=== PATIENT | male | born 1970 | race Caucasian/White ===

== ENCOUNTER 2019-07-20 08:32 | Emergency (ER) | payer OTHER ==
--- OUTSIDE RECORDS SUMMARY | 2019-07-20 08:43 | XMS REPORT | Clinical Summary ---
:1970 Author Organization [facility] Address [address] [place] [address] Care Team Providers Name Role Phone David Rubio MD Primary Care Provider Allergies Active Allergy Reactions Severity Noted Date Comments Hydrocodone-Acetaminophen Itching Low 05/13/2017 Owveqqz-Lwt-Ike Reductase Inhibitors 06/11/2016 Tramadol 06/11/2016 Induced seizure Medications Medication Sig Dispensed Refills Start Date End Date Status DECARA 25,000 unit Take 1 3 07/25/2016 Active capsule capsule by mouth once a week. gabapentin Take 300 mg 5 06/27/2016 Active (NEURONTIN) 300 MG by mouth 2 capsule (two) times a day. levETIRAcetam Take 750 mg 3 07/22/2016 Active (KEPPRA) 750 MG by mouth 2 tablet (two) times a day. Take one in the am and two in the pm mometasone USE 2 SPRAYS 2 05/29/2016 Active (NASONEX) 50 INTO EACH mcg/actuation NOSTRIL nasal spray DAILY metFORMIN XR Take 500 mg 2 08/27/2016 Active (GLUCOPHAGE-XR) by mouth 2 500 mg 24 hr (two) times tablet a day. valsartan-hydrochl TAKE ONE 2 08/27/2016 Active orothiazide TABLET DAILY (DIOVAN-HCT) IN THE 320-12.5 mg per MORNING tablet metaxalone Take 800 mg 5 04/10/2017 Active (SKELAXIN) 800 MG by mouth 3 tablet (three) times a day as needed. triamcinolone 0 04/15/2017 Active (KENALOG) 0.1 % cream BETAINE HCL ORAL Take by 0 Active mouth 3 (three) times a day. SYMBICORT 160-4.5 0 06/08/2018 Active mcg/actuation inhaler diclofenac sodium TAKE 1 180 tablet 1 10/08/2018 Active (VOTAREN XR) 100 TABLET BY mg 24 hr tablet MOUTH TWICE A DAY diclofenac sodium TAKE 1 180 tablet 1 02/16/2018 Discontinued (VOTAREN XR) 100 TABLET BY 8 (Reorder) mg 24 hr tablet MOUTH TWICE A DAY DULoxetine Take 1 180 capsule 1 03/11/2018 Discontinued (CYMBALTA) 60 MG capsule (60 9 capsule mg total) by mouth 2 (two) times a day. [id number] Take 1 kit 1 each 0 12/07/2018 [id number] by mouth 9 (MOVIPREP) once for 1 100-7.5-2.691 gram dose. powder in packet pantoprazole Take 1 90 tablet 3 12/27/2018 (PROTONIX) 40 MG tablet (40 9 EC tablet mg total) by mouth daily for 30 days. Active Problems Problem Noted Date Cervicalgia 06/16/2018 Splenomegaly 11/16/2017 Chronic diarrhea 05/13/2017 Myalgia 05/13/2017 Small fiber neuropathy 05/13/2017 Erythromelalgia 11/11/2016 Arthrosis of left acromioclavicular joint 11/11/2016 CVID (common variable immunodeficiency) 06/11/2016 Overview: Dr brown Periarticular pain 06/11/2016 Overview: HLA b-27 neg Sleep apnea 06/11/2016 HLD (hyperlipidemia) 06/11/2016 HTN (hypertension) 06/11/2016 PAC (premature atrial contraction) 06/11/2016 Seizure 06/11/2016 Overview: +EEG. Dr Varghese partial complex Encounters Date Type Specialty Care Team Description 04/14/2019 Refill Rheumatology Sylvia Mckeon MD 12/27/2018 Surgery Gastroenterology Jose Jackson EGD with Cold Bx AND MD Silvio COLONOSCOPY with Cold Bx 12/27/2018 Anesthesia Event Gastroenterology Dhother, Lucio Garza MD 12/27/2018 [facility] Gastroenterology Jose Jackson Hypertension, Encounter MD Silvio unspecified type (Primary Dx) 12/07/2018 Office Visit Gastroenterology Jose Jackson (Primary Dx); MD Silvio Gastroesophageal reflux disease without esophagitis; Constipation, unspecified constipation type; Diarrhea, unspecified type; Weight loss 12/07/2018 Orders Only Gastroenterology Conrado Kendrick RN 10/08/2018 Refill Rheumatology Sylvia Mckeon MD after 07/19/2018 Family History Medical History Relation Name Comments Other Cousin paternal Esophageal cancer Father Psoriasis Mother Relation Name Status Comments Cousin paternal Father Mother Social History Tobacco Use Types Packs/Day Years Used Date Never Smoker Smokeless Tobacco: Former User Chew Alcohol Use Drinks/Week oz/Week Comments No Sex Assigned at Date Recorded Not on file Job Start Date Occupation Industry Not on file Not on file Not on file Travel History Travel Start Travel End No recent travel history available. Last Filed Vital Signs Vital Sign Reading Time Taken Comments Blood Pressure 131/68 12/27/2018 3:00 PM [employer]PECT[employer]RILL[employer] Pulse 85 12/27/2018 3:00 PM [employer] Temperature 36.4 C (97.5 F) 12/27/2018 3:00 PM [employer] Respiratory Rate 20 12/27/2018 3:00 PM [employer] Oxygen Saturation 96% 12/27/2018 3:00 PM [employer]RI[employer] Inhaled Oxygen Concentration - - Weight 103 kg (226 lb 12.8 oz) 12/07/2018 12:30 PM [employer]RI[employer] Height 167.6 cm (5' 6") 12/27/2018 1:12 PM [employer] Body Mass Index 32.54 12/07/2018 12:30 PM [employer] Plan of Treatment Health Maintenance Due Date Last Done Comments COLONOSCOPY SCREENING 2019 SHINGLES VACCINES (#1) 2019 INFLUENZA VACCINE 06/09/2019 12/20/2018 Procedures Procedure Name Priority Date/Time Associated Comments Diagnosis SURGICAL PATHOLOGY REQUEST Routine 12/27/2018 Results for 3:05 PM [employer]PECTING DRILL[employer] HEL[employer] this procedure are in the results section. POC GLUCOSE Routine 12/27/2018 Results for 2:46 PM [employer]PECTING DRILL[employer] HELPER this procedure are in the results section. TIM TEST Routine 12/27/2018 Results for 2:07 PM [employer]PECTING DRILLER HELPER this procedure are in the results section. ESOPHAGOGASTRODUODENOSCOPY (EGD) 12/27/2018 Diarrhea 1:56 PM [employer]PECTING [employer]RILL[employer] HELPER Gastric reflux POC GLUCOSE Routine 12/27/2018 Results for 1:24 PM [employer]PECTING DRILLER HELPER this procedure are in the results section. after 07/19/2018 Results Surgical pathology request (12/27/2018 3:05 PM [employer]OSPECTING DRILLER HELPER) [facility] DEPARTMENT OF PATHOLOGY AND GENOMIC MEDICINE Surgical pathology See link below [facility] DEPARTMENT OF report for PDF Lab PATHOLOGY AND Report GENOMIC MEDICINE Result status This is Final [facility] DEPARTMENT OF Report for PATHOLOGY AND [id number] GENOMIC MEDICINE Specimen Performing Organization Address City/[facility]/Zipcode Phone Number [facility] DEPARTMENT OF PATHOLOGY AND [address] [place] [id number] [facility] MEDICINE POC glucose (12/27/2018 2:46 PM PROSPECTING DRILLER HELPER)Only the most recent of2 resultswithin the time period is included. Pathologist [facility] POC glucose 102 (H) 65 - 99 mg/dL [facility] Comment: [facility] Notified RN Meter ID: [id number] Mortgage Broker: [facility] Specimen Performing Organization Address City/[facility]/Zipcode Phone Number [facility] DEPARTMENT OF PATHOLOGY AND [address] [place] [id number] [place] [id number] TIM test (12/27/2018 2:07 PM PROSPECTING DRILLER HELPER) TIM test Negative after 24 hours. [facility] Comment: HOSPITAL Specimen Information Specimen Source: Biopsy Specimen Site: bx stomach Specimen Biopsy Performing Organization Address City/[facility] Number [facility] DEPARTMENT OF PATHOLOGY AND [address] [place], [place] [id number] [address] [address] after 07/19/2018 (Home) [place] [phone] ED [facility] [place] (Work) [place] [phone]
--- NOTE | 2019-07-20 09:25 | RAD REPORT ---
EXAM DESCRIPTION: CT - Head Brain Wo Cont - 07/20/2019 9:10 am CLINICAL HISTORY: Headache COMPARISON: None. TECHNIQUE: Computed axial tomography of the head was obtained. IV contrast was not requested. All CT scans are performed using dose optimization technique as appropriate and may include automated exposure control or mA/KV adjustment according to patient size. FINDINGS: An intracranial bleed is not seen . The ventricles are normal in caliber. No extra-axial fluid collection is noted. Fluid within the sinuses/ mastoids is not seen. IMPRESSION: No acute intracranial abnormality is seen. If patient's symptoms persist MRI of the bra in would be recommended.
--- NOTE | 2019-07-20 09:36 | ER ---
Nurse's Notes [facility] Name: Corey Bella Age: 49 yrs Sex: Male : 1970 Arrival Date: 07/20/2019 Time: 08:35 Bed 6 Private MD: David Rubio V Diagnosis: Headache Presentation: 07/20 08:46 Presenting complaint: Patient states: this morning had a squeezing pain to top of right iw head this morning, hx of headaches/migraines, was on diclofenac for headaches but was switched to sumatriptan and propranolol. Transition of care: patient was not received from another setting of care. Onset of symptoms was July 20, 2019. Risk Assessment: Do you want to hurt yourself or someone else? Patient reports no desire to harm self or others. Initial Sepsis Screen: Does the patient meet any 2 criteria? No. Patient's initial sepsis screen is negative. Does the patient have a suspected source of infection? No. Patient's initial sepsis screen is negative. Care prior to arrival: None. 08:46 Method Of Arrival: Ambulatory iw 08:46 Acuity: KIMBERLY 3 iw Triage Assessment: 09:49 General: Appears in no apparent distress. Behavior is calm. iw Historical: - Allergies: 09:05 tramadol; iw - Home Meds: 09:05 diclofenac sodium 100 mg oral Tb24 1 tab 2 times per day [Active]; oxcarbazepine 300 mg iw oral tab 1 tab 2 times per day [Active]; sumatriptan succinate 50 mg oral tab 1 tab daily [Active]; propranolol 10 mg Oral tab twice a day [Active]; pantoprazole 40 mg oral TbEC 1 tab once daily [Active]; - PMHx: 09:05 Common Variable Immune Deficiency; Hypertension; Seizures; iw - Immunization history:: Adult Immunizations up to date. - Ebola Screening: : Patient negative for fever greater than or equal to 101.5 degrees Fahrenheit, and additional compatible Ebola Virus Disease symptoms Patient denies exposure to infectious person Patient denies travel to an Ebola-affected area in the 21 days before illness onset No symptoms or risks identified at this time. - Social history:: Smoking status: Patient/guardian denies using tobacco. Screenin:49 Abuse screen: Denies threats or abuse. Denies injuries from another. Nutritional iw screening: No deficits noted. Tuberculosis screening: No symptoms or risk factors identified. Fall Risk None identified. Assessment: 08:50 General: Appears comfortable, Behavior is calm, cooperative, Pt states "This headache aa5 feels exactly the same to my other headaches and absolutely nothing is different about it" . Pain: Complains of pain in right side of top of head Pain does not radiate. Pain currently is 1 out of 10 on a pain scale. Quality of pain is described as aching, Pain began "I always have headache, since I was a teenager" Is continuous. Neuro: Level of Consciousness is awake, alert, obeys commands, Oriented to person, place, time, situation, Agricultural Commodities Grader are equal bilaterally Moves all extremities. Gait is steady, Speech is normal, Facial symmetry appears normal, Pupils are PERRLA. Cardiovascular: Heart tones S1 S2 present Rhythm is regular. Respiratory: Airway is patent Respiratory effort is even, unlabored, Respiratory pattern is regular, symmetrical, Breath sounds are clear bilaterally. Denies cough, shortness of breath. GI: Patient currently denies diarrhea, nausea, vomiting. : No signs and/or symptoms were reported regarding the genitourinary system. EENT: Denies sore throat . Derm: Skin is pink, warm \\T\\ dry. Musculoskeletal: Range of motion: intact in all extremities. 09:48 Reassessment: Patient appears in no apparent distress at this time. Patient and/or iw family updated on plan of care and expected duration. Pain level reassessed. Patient is alert, oriented x 3, equal unlabored respirations, skin warm/dry/pink. Patient states feeling better. Patient states symptoms have improved. Pain: Denies pain. Vital Signs: 09:05 BP 146 / 96; Pulse 93; Resp 18 S; Temp 98.3; Pulse Ox 98% on R/A; iw ED Course: 08:35 Patient arrived in ED. ag5 08:35 David Rubio MD is Private Physician. ag5 08:38 Jorje Bonner PA is [facility]. cp 08:38 Vidal Reid MD is Attending Physician. cp 08:38 Laly Pineda, RN is Primary Nurse. aa5 08:59 Triage completed. iw 09:05 Arm band placed on. iw 09:11 CT Head Brain wo Cont In Process Unspecified. EDMS 09:35 David Rubio MD is Referral Physician. cp 09:35 Referral Physician role handed off by David Rubio MD cp 09:35 Samuel Varghese MD is Referral Physician. cp 09:49 Patient has correct armband on for positive identification. iw 09:49 No provider procedures requiring assistance completed. Patient did not have IV access iw during this emergency room visit. Administered Medications: No medications were administered Outcome: 09:35 Discharge ordered by MD. cp 09:49 Discharged to home ambulatory, with family. iw 09:49 Condition: good 09:49 Discharge instructions given to patient, family, Instructed on discharge instructions, follow up and referral plans. Demonstrated understanding of instructions, follow-up care. 09:49 Patient left the ED. iw Signatures: Dispatcher [employer] EDJazmine Trammell RN RN Laly Evans RN RN aa5 Jorje Bonner PA PA Rhianna Saldivar ag5
--- NOTE | 2019-07-20 09:36 | EDPHYS ---
Physician Documentation [facility] Name: Corey Bella Age: 49 yrs Sex: Male : 1970 Arrival Date: 07/20/2019 Time: 08:35 Bed 6 Private MD: David Rubio V ED Physician Vidal Reid HPI: 07/20 08:52 This 49 yrs old Male presents to ER via Unassigned with complaints of Head cp Problem. 08:52 The patient complains of pain to the top and right side of head. cp 08:52 The patient describes the headache as squeezing. cp 08:52 Onset: The symptoms/episode began/occurred this morning, and improved just prior to cp arrival. Associated signs and symptoms: Pertinent negatives: altered mental status, dizziness, fever, neck stiffness, paresthesias, Photophobia vision changes, vomiting. Severity of symptoms: in the emergency department the pain a " 1" out of "10". Headache History: The patient has had previous headaches and this one is similar to previous episodes. Patient reports recent change in headache medicine from diclofenac to sumatriptan and propanolol that patient reports is not as effective in relieving headaches as diclofenac. Patient reports taking diclofenac this morning for headache. Historical: - Allergies: 09:05 tramadol; iw - Home Meds: 09:05 diclofenac sodium 100 mg oral Tb24 1 tab 2 times per day [Active]; oxcarbazepine 300 mg iw oral tab 1 tab 2 times per day [Active]; sumatriptan succinate 50 mg oral tab 1 tab daily [Active]; propranolol 10 mg Oral tab twice a day [Active]; pantoprazole 40 mg oral TbEC 1 tab once daily [Active]; - PMHx: 09:05 Common Variable Immune Deficiency; Hypertension; Seizures; iw - Immunization history:: Adult Immunizations up to date. - Ebola Screening: : Patient negative for fever greater than or equal to 101.5 degrees Fahrenheit, and additional compatible Ebola Virus Disease symptoms Patient denies exposure to infectious person Patient denies travel to an Ebola-affected area in the 21 days before illness onset No symptoms or risks identified at this time. - Social history:: Smoking status: Patient/guardian denies using tobacco. ROS: 09:00 Constitutional: Negative for body aches, chills, fever, poor PO intake. cp 09:00 Eyes: Negative for injury, pain, redness, and discharge. cp 09:00 ENT: Negative for drainage from ear(s), ear pain, sore throat, difficulty swallowing, difficulty handling secretions. 09:00 Cardiovascular: Negative for chest pain, edema, palpitations. 09:00 Respiratory: Negative for cough, shortness of breath, wheezing. 09:00 Abdomen/GI: Negative for abdominal pain, nausea, vomiting, and diarrhea, constipation, black/tarry stool, rectal bleeding. 09:00 Back: Negative for pain at rest, pain with movement, radiated pain. 09:00 : Negative for urinary symptoms. 09:00 Skin: Negative for cellulitis, rash. 09:00 Neuro: Positive for headache, Negative for altered mental status, dizziness, numbness, weakness. 09:00 All other systems are negative. Exam: 09:05 Constitutional: The patient appears in no acute distress, alert, awake, comfortable, cp non-diaphoretic, non-toxic, well developed, well nourished. 09:05 Head/Face: Normocephalic, atraumatic. cp 09:05 Eyes: Periorbital structures: appear normal, Pupils: equal, round, and reactive to light and accomodation, Extraocular movements: intact throughout, Conjunctiva: normal, no exudate, no injection, Sclera: no appreciated abnormality, Lids and lashes: appear normal, bilaterally. 09:05 ENT: External ear(s): are unremarkable, Ear canal(s): are normal, clear, TM's: bulging, is not appreciated, bilaterally, dullness, is not appreciated, erythema, is not appreciated, bilaterally, Nose: is normal, Mouth: is normal, Posterior pharynx: is normal, airway is patent, no erythema, no exudate. 09:05 Chest/axilla: Inspection: normal, Palpation: is normal, no crepitus, no tenderness. 09:05 Cardiovascular: Rate: normal, Rhythm: regular, Edema: is not appreciated, JVD: is not appreciated. 09:05 Respiratory: the patient does not display signs of respiratory distress, Respirations: normal, no use of accessory muscles, no retractions, no splinting, no tachypnea, Breath sounds: are clear throughout, no decreased breath sounds, no stridor, no wheezing. 09:05 Abdomen/GI: Inspection: abdomen appears normal, Palpation: abdomen is soft and non-tender, in all quadrants. 09:05 Skin: no rash present. 09:05 Neuro: Orientation: to person, place \\T\\ time. Mentation: is normal, Cerebellar function: is grossly normal, Motor: moves all fours, strength is normal, Sensation: is normal. Vital Signs: 09:05 BP 146 / 96; Pulse 93; Resp 18 S; Temp 98.3; Pulse Ox 98% on R/A; iw MDM: 08:41 Patient medically screened. cp 09:00 Differential diagnosis: meningitis, meningoencephalitis, migraine, otitis, subarachnoid cp bleed, tension headache. 09:35 Data reviewed: vital signs, nurses notes, radiologic studies, CT scan. 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 09:35 ED course: VSS. Head CT negative for acute findings. Will discharge to home for cp continued monitoring. 07/20 08:52 Order name: CT Head Brain wo Cont; Complete Time: 09:32 cp 07/20 09:32 Interpretation: Report reviewed. cp Administered Medications: No medications were administered Disposition: 07/20/19 09:35 Discharged to Home. Impression: Headache. - Condition is Stable. - Discharge Instructions: General Headache Without Cause. - Medication Reconciliation Form, Thank You Letter, Antibiotic Education, Prescription Opioid Use form. - Follow up: David Rubio MD; When: 1 - 2 days; Reason: Recheck today's complaints. Follow up: Samuel Varghese MD; When: 1 - 2 days; Reason: Recheck today's complaints. - Problem is chronic. - Symptoms have improved. Addendum: 07/25/2019 08:53 Co-signature as Attending Physician, Vidal Reid MD I agree with the assessment and k plan of care. Signatures: Dispatcher [employer] EDMO Vidal Reid MD MD kdr Jazmine Quan RN RN Jorje Moran PA PA cp Corrections: (The following items were deleted from the chart) 07/20 09:49 09:35 07/20/2019 09:35 Discharged to Home. Impression: Headache. Condition is Stable. iw Forms are Medication Reconciliation Form, Thank You Letter, Antibiotic Education, Prescription Opioid Use. Follow up: Samuel Varghese; When: 1 - 2 days; Reason: Recheck today's complaints. Problem is chronic. Symptoms have improved. cp
[2019-07-20 10:03] VITALS: BP 146/96; TEMP 98.3; O2SAT 98
== END 2019-07-20 09:49 | disposition home or self-care (01) ==
LOC: ER 08:32
DX: R51 Headache (principal); I10 Essential (primary) hypertension; G40.909 Epilepsy, unspecified, not intractable, without status epilepticus; Z88.5 Allergy status to narcotic agent
CPT/HCPCS: 70450; 99283